=== PATIENT | male | born 1995 | race American Indian/Alaskan Native ===

== ENCOUNTER 2016-11-28 12:17 | Emergency (ER) | payer OTHER ==
[~2016-11-28] VITALS: Ht 177.8 cm; Wt 93.1 kg
[2016-11-28 12:18] VITALS: BP 149/87
[2016-11-28] MEDS ORDERED: ROBA500T PO (13:18)
[2016-11-28] MEDS ORDERED: IBUP-1022 PO (13:18)
== END 2016-11-28 13:31 | disposition home or self-care (01) ==
LOC: M ED 12:17
DX: S16.1XXA Strain of muscle, fascia and tendon at neck level, initial encounter (principal); V43.62XA Car passenger injured in collision with other type car in traffic accident, initial encounter; Y92.410 Unspecified street and highway as the place of occurrence of the external cause; Y99.9 Unspecified external cause status; Y93.9 Activity, unspecified